=== PATIENT | male | born 1965 | race Caucasian/White ===

== ENCOUNTER 2017-10-26 09:58 | Emergency (ER) | payer SELFPAY ==
[2017-10-26 10:07] VITALS: BP 161/77
--- NOTE | 2017-10-26 10:22 | UC ---
Laceration HPI - HPI Summary HPI Summary: laceration left leg x 1 hr ago chainsaw injury as he was cutting wood , cut his left leg about the knee bleeding was controlled by presure - History Of Current Complaint Chief Complaint: UCLaceration Stated Complaint: LEFT LEG INJURY Time Seen by Provider: 10/26/17 10:00 Hx Obtained From: Patient Mechanism Of Injury: Sharp Trauma Onset/Duration: Sudden Onset, Lasting Minutes - 30, Still Present Severity: Moderate Pain Intensity: 9 Aggravating Factors: Movement - Allergies/Home Medications Allergies/Adverse Reactions: Allergies Allergy/AdvReac Type Severity Reaction Status Date / Time MS Penicillins [Penicillins] Allergy Severe Rash Verified 02/22/14 13:17 Penicillins Allergy Rash Verified 10/26/17 10:02 Home Medications: Home Medications NK [No Home Medications Reported] 10/26/17 [History Confirmed 10/26/17] PMH/Surg Hx/FS Hx/Imm Hx Previously Healthy: Yes - Surgical History Surgical History: Yes Surgery Procedure, Year, and Place: hernia. right arm fx/had surgery. L arm surgery - Family History Known Family History: Positive: None Negative: Diabetes Family History: R & n/C - Social History Alcohol Use: Rare Substance Use Type: None Smoking Status (MU): Heavy Every Day Tobacco Smoker Type: Cigarettes Amount Used/How Often: 1 1/2 ppd Household Exposure Type: Cigarettes - Immunization History Most Recent Tetanus Shot: 2008 Review of Systems Constitutional: Negative Eyes: Negative ENT: Negative Respiratory: Negative Cardiovascular: Negative Is Patient Immunocompromised?: No All Other Systems Reviewed And Are Negative: Yes Physical Exam Triage Information Reviewed: Yes Appearance: Well-Appearing, No Pain Distress, Well-Nourished Vital Signs: Initial Vital Signs Temp 99 F 10/26/17 10:02 Pulse 85 10/26/17 10:02 Resp 14 10/26/17 10:02 BP 161/77 10/26/17 10:02 Pulse Ox 96 10/26/17 10:02 Vital Signs Reviewed: Yes Eyes: Positive: Conjunctiva Clear ENT: Positive: Normal ENT inspection, Hearing grossly normal, Pharynx normal Neck: Positive: Supple, Nontender Respiratory Exam: Normal Respiratory: Positive: Chest non-tender, Lungs clear, Normal breath sounds Cardiovascular: Positive: RRR, No Murmur, Pulses Normal Skin: Positive: Other - laceration left thigh , 5 cm , minimal bleeding UC Physical Exam Vital Signs On Initial Exam: Initial Vitals Temp Pulse Resp BP Pulse Ox 99 F 85 14 161/77 96 10/26/17 10:02 10/26/17 10:02 10/26/17 10:02 10/26/17 10:02 10/26/17 10:02 Laceration Repair - Laceration Repair 1 Description: Linear Laceration Size After Repair: Length (cm) - 5, Width (mm) - 2, Depth (mm) - 2 Modified For Repair: No Cleansing Completed Via Routine Prep: Yes Irrigation With Pressure Irrigation Device: Yes Closure Material: Skin Adhesive Laceration Course/Dx - Differential Dx - Laceration/Wound Provider Diagnoses: laceration left thigh Discharge - Sign-Out/Discharge Documenting (check all that apply): Patient Departure - Discharge Plan Condition: Stable Disposition: HOME Patient Education Materials: Skin Adhesive Care (ED) Referrals: César Christian NP [Primary Care Provider] - 5 Days - Billing Disposition and Condition Condition: STABLE Disposition: Home
[2017-10-26] MEDS ORDERED: Tetan/Diph/Pertus SYR(Tdap)* 0.5 ML SYR(BOOSTRIX) use SYR IM ONE (10:39)
== END 2017-10-26 10:58 | disposition home or self-care (01) ==
LOC: UCCORT 09:58
DX: S71.112A Laceration without foreign body, left thigh, initial encounter (principal); W29.3XXA Contact with powered garden and outdoor hand tools and machinery, initial encounter; Y93.89 Activity, other specified; Y92.9 Unspecified place or not applicable; Z88.0 Allergy status to penicillin; F17.210 Nicotine dependence, cigarettes, uncomplicated
CPT/HCPCS: 12002; 90471; 90715; 99211; G0463

== ENCOUNTER 2018-02-15 17:30 | Emergency (ER) | payer SELFPAY ==
[2018-02-15 18:02] VITALS: BP 149/76
--- NOTE | 2018-02-15 18:54 | UC ---
Respiratory Complaint HPI - HPI Summary HPI Summary: 52 yo with no PMH and history of smoking c/o productive cough with clear d/c, diarrhea, chills, head and nasal congestion, constant clear nasal discharge and and sweats for one week. States he continues to smoke one and a half PPD of cigarettes and will not quit. - History of Current Complaint Chief Complaint: UCRespiratory Stated Complaint: SORE THROAT,COUGH Time Seen by Provider: 02/15/18 18:03 Hx Obtained From: Patient Onset/Duration: Sudden Onset, Lasting Days Severity Initially: Mild Severity Currently: Moderate Pain Intensity: 5 Character: Cough: Productive Associated Signs And Symptoms: Positive: Negative - Risk Factors Pulmonary Embolism Risk Factors: Negative Cardiac Risk Factors: Negative Pseudomonas Risk Factors: Negative Tuberculosis Risk Factors: Negative - Allergies/Home Medications Allergies/Adverse Reactions: Allergies Allergy/AdvReac Type Severity Reaction Status Date / Time Penicillins Allergy Hives, Rash Verified 02/15/18 17:57 Home Medications: Home Medications Phenylephrine/Dm/Acetaminop/GG [Vicks Dayquil Severe Cold] 30 ml PO Q6H PRN 12/25 [History Confirmed 02/15/18] PMH/Surg Hx/FS Hx/Imm Hx Previously Healthy: Yes - Surgical History Surgical History: Yes Surgery Procedure, Year, and Place: [facility] [place]; Right Forearm Deep Laceration s/p Trauma Repair; Left Third Finger s/p Trauma Repair - Family History Known Family History: Positive: None Negative: Diabetes Family History: R & n/C - Social History Alcohol Use: None Substance Use Type: None Smoking Status (MU): Heavy Every Day Tobacco Smoker Type: Cigarettes Amount Used/How Often: 1 1/2 ppd Length of Time of Smoking/Using Tobacco: Since Age 18 Household Exposure Type: Cigarettes - Immunization History Most Recent Tetanus Shot: 2008 Review of Systems All Other Systems Reviewed And Are Negative: Yes Constitutional: Positive: Chills Respiratory: Positive: Cough Gastrointestinal: Positive: Diarrhea Physical Exam Triage Information Reviewed: Yes Appearance: Well-Appearing, No Pain Distress, Well-Nourished Vital Signs: Initial Vital Signs Temp 98.1 F 02/15/18 17:54 Pulse 66 02/15/18 17:54 Resp 18 02/15/18 17:54 BP 149/76 02/15/18 17:54 Pulse Ox 95 02/15/18 17:54 Vital Signs Reviewed: Yes Eyes: Positive: Conjunctiva Clear ENT: Positive: Hearing grossly normal, Pharynx normal, TMs normal, Uvula midline Neck exam: Normal Neck: Positive: Supple, Nontender Respiratory: Positive: Chest non-tender, Lungs clear, Normal breath sounds, No respiratory distress Cardiovascular: Positive: RRR, No Murmur, Pulses Normal, Brisk Capillary Refill Abdomen Description: Positive: Nontender UC Diagnostic Evaluation - Laboratory O2 Sat by Pulse Oximetry: 95 Respiratory Course/Dx - Course Course Of Treatment: influenza POC test is negative, physical exam reveals clear lungs, patient denies fever and main symptoms are rhinorrhea and occasional cough with clear discharge, diarrhea has been resolving. Viral syndrome, continue supportive care, PO Fluids, advised to quit smoking. D/w patient role of antibiotics which are not indicated at this time, and to return to PCP for f/u and monitoring of current symptoms and BP . - Differential Dx/Diagnosis Provider Diagnoses: elevated BP without diagnosis of HTN. viral syndrome Discharge - Sign-Out/Discharge Documenting (check all that apply): Patient Departure All imaging exams completed and their final reports reviewed: No Studies - Discharge Plan Condition: Stable Disposition: HOME Patient Education Materials: Viral Syndrome (ED), Ibuprofen (By mouth) Referrals: Céasr Christian NP [Primary Care Provider] - - Billing Disposition and Condition Condition: STABLE Disposition: Home
== END 2018-02-15 19:07 | disposition home or self-care (01) ==
LOC: UCCORT 17:30
DX: B34.9 Viral infection, unspecified (principal); R03.0 Elevated blood-pressure reading, without diagnosis of hypertension; R05 Cough; R19.7 Diarrhea, unspecified; R09.81 Nasal congestion; J02.9 Acute pharyngitis, unspecified; F17.210 Nicotine dependence, cigarettes, uncomplicated; Z88.0 Allergy status to penicillin
CPT/HCPCS: 99211; G0463